=== PATIENT | female | born 1975 ===

== ENCOUNTER 2021-01-14 08:15 | Emergency (ER) | payer SELFPAY ==
[2021-01-14 08:43] VITALS: BP 166/74
[2021-01-14] MEDS ORDERED: KETOROLAC 10 MG TAB PO ONE (09:33)
--- NOTE | 2021-01-14 09:38 | Emergency Department Report ---
ED General Adult HPI - General Chief complaint: Pain General Stated complaint: BODY PAIN Time Seen by Provider: 01/14/21 08:47 Source: patient Mode of arrival: Ambulatory Limitations: No Limitations - History of Present Illness Initial comments: 45-year-old -[place] female patient without prior medical history presents with complaints of bilateral shoulder pain radiating into her arms x3 weeks. She describes the pain as a tightness, burning, and tingling down her arms. She denies any injuries to her neck or recent heavy lifting or head tra [place]. No fever/chills/sweats, headache, or past medical history. Patient states Tylenol is not helping. She also reports that intermittently the right shoulder pain radiates into her upper right chest and breast. She denies any shortness of breath, cough, leg pain/swelling, recent long travel, or hormone use. No history of DVT/PE. Patient reports the pain worsens with movement of the shoulders and with certain positions while sleeping at night. - Related Data Previous Rx's Medication Instructions Recorded Last Taken Type Naproxen 500 mg PO BID PRN #20 tablet 01/14/21 Unknown Rx methocarbamoL [Methocarbamol] 750 - 1,500 mg PO TID PRN #30 01/14/21 Unknown Rx tablet Allergies Allergy/AdvReac Type Severity Reaction Status Date / Time No Known Allergies Allergy Verified 01/14/21 09:42 ED Review of Systems ROS: Stated complaint: BODY PAIN Other details as noted in HPI Constitutional: denies: chills, fever Respiratory: denies: cough, shortness of breath Cardiovascular: as per HPI Gastrointestinal: denies: abdominal pain Neurological: denies: headache, weakness, numbness, paresthesias, abnormal gait ED Past Medical Hx - Past Medical History Previous Medical History?: No - Surgical History Past Surgical History?: No - Medications Home Medications: Home Medications Medication Instructions Recorded Confirmed Last Taken Type Naproxen 500 mg PO BID PRN #20 tablet 01/14/21 Unknown Rx methocarbamoL [Methocarbamol] 750 - 1,500 mg PO TID PRN #30 01/14/21 Unknown Rx tablet ED Physical Exam - General Limitations: No Limitations General appearance: alert, in no apparent distress - Head Head exam: Present: atraumatic, normocephalic - Eye Eye exam: Present: normal appearance - Neck Neck exam: Present: tenderness (Tenderness to palpation noted bilaterally to trapezius muscles without obvious deformity; minimal vertebral tenderness to palpation noted without obvious deformity or step-off), full ROM - Respiratory Respiratory exam: Present: normal lung sounds bilaterally. Absent: respiratory distress - Cardiovascular Cardiovascular Exam: Present: regular rate, normal rhythm - Extremities Exam Extremities exam: Absent: calf tenderness - Back Exam Back exam: Present: full ROM - Neurological Exam Neurological exam: Present: alert, oriented X3 - Psychiatric Psychiatric exam: Present: normal affect, normal mood - Skin Skin exam: Present: warm, dry, intact, normal color. Absent: rash ED Course Vital Signs 01/14/21 08:40 Temperature 98 F Pulse Rate 71 Respiratory 16 Rate Blood Pressure 166/74 [Left] O2 Sat by Pulse 99 Oximetry ED Medical Decision Making - Lab Data Result diagrams: 01/14/21 09:54 01/14/21 09:54 Lab Results 01/14/21 01/14/21 Range/Units 09:54 09:54 WBC 3.8 L (4.5-11.0) K/mm3 RBC 4.37 (3.65-5.03) M/mm3 Hgb 11.8 (10.1-14.3) gm/dl Hct 36.7 (30.3-42.9) % MCV 84 (79-97) fl MCH 27 L (28-32) pg MCHC 32 (30-34) % RDW 14.5 (13.2-15.2) % Plt Count 165 (140-440) K/mm3 Lymph % (Auto) 24.5 (13.4-35.0) % [place] % (Auto) 15.3 H (0.0-7.3) % Eos % (Auto) 4.3 (0.0-4.3) % Baso % (Auto) 1.4 (0.0-1.8) % Lymph # (Auto) 0.9 L (1.2-5.4) K/mm3 [place] # (Auto) 0.6 (0.0-0.8) K/mm3 Eos # (Auto) 0.2 (0.0-0.4) K/mm3 Baso # (Auto) 0.1 (0.0-0.1) K/mm3 Seg Neutrophils % 54.5 (40.0-70.0) % Seg Neutrophils # 2.1 (1.8-7.7) K/mm3 Sodium 140 (137-145) mmol/L Potassium 3.9 (3.6-5.0) mmol/L Chloride 105.5 (98-107) mmol/L Carbon Dioxide 23 (22-30) mmol/L Anion Gap 15 mmol/L BUN 8 (7-17) mg/dL Creatinine 0.9 (0.6-1.2) mg/dL Estimated GFR > 60 ml/min BUN/Creatinine Ratio 9 % Glucose 98 (65-100) mg/dL Calcium 9.0 (8.4-10.2) mg/dL Total Bilirubin 0.50 (0.1-1.2) mg/dL AST 18 (5-40) units/L ALT 18 (7-56) units/L Alkaline Phosphatase 58 (35-129) units/L Troponin T < 0.010 (0.00-0.029) ng/mL Total Protein 7.5 (6.3-8.2) g/dL Albumin 4.5 (3.9-5) g/dL Albumin/Globulin Ratio 1.5 % - EKG Data EKG shows normal: sinus rhythm Rate: normal - EKG Data When compared to previous EKG there are: other (Mild arrhythmia noted, however this appears to be due to patient breathing) - Radiology Data Radiology results: report reviewed XR chest routine 2V INDICATION / CLINICAL INFORMATION: chest pain. COMPARISON: None available. FINDINGS: SUPPORT DEVICES: None. HEART /PULMONARY VASCULATURE: No significant abnormality. LUNGS / PLEURA: No significant pulmonary or pleural abnormality. No pneumothorax. ADDITIONAL FINDINGS: No significant additional findings. IMPRESSION: 1. No acute findings. - Medical Decision Making 45-year-old -[place] female patient without prior medical history presents with complaints of bilateral shoulder pain radiating into her arms x3 weeks. She describes the pain as a tightness, burning, and tingling down her arms. She denies any injuries to her neck or recent heavy lifting or head trauma. No fever/chills/sweats, headache, or past medical history. Patient states Tylenol is not helping. She also reports that intermittently the right shoulder pain radiates into her upper right chest and breast. She denies any shortness of breath, cough, leg pain/swelling, recent long travel, or hormone use. No history of DVT/PE. Patient reports the pain worsens with movement of the shoulders and with certain positions while sleeping at night. History and physical appear to be consistent with cervical radiculopathy. Given pain radiation to the chest, EKG, chest x-ray, and labs were performed and are negative for any acute abnormalities. Will treat for cervical radiculopathy with NSAIDs and muscle relaxers. Recommend patient follows up with primary care for further evaluation, referral provided. Patient also informed she will need to follow-up with primary care for blood pressure recheck. She is otherwise well-appearing and stable for discharge home. Strict return precautions were discussed in great detail with patient who verbalizes understanding. Critical care attestation.: If time is entered above; I have spent that time in minutes in the direct care of this critically ill patient, excluding procedure time. ED Disposition Clinical Impression: Cervical radiculopathy, Elevated blood pressure reading without diagnosis of hypertension Disposition: HOME / SELF CARE / HOMELESS Is pt being admited?: No Condition: Stable Instructions: Cervical Radiculopathy, Hypertension, Adult, [id number] Additional Instructions: Your chest x-ray, blood work, and ECG of your heart are normal. As discussed, your symptoms appear to be due to cervical radiculopathy. Please follow-up with a primary care doctor for further evaluation and treatment. If you develop new or worsening symptoms, please seek immediate emergency treatment. Prescriptions: methocarbamoL [Methocarbamol] 750 - 1,500 mg PO TID PRN #30 tablet PRN Reason: muscle spasm/tightness Naproxen 500 mg PO BID PRN #20 tablet PRN Reason: pain Referrals: [facility] [Provider Group] - 3-5 Days
--- NOTE | 2021-01-14 10:03 | XRay Report ---
XR chest routine 2V INDICATION / CLINICAL INFORMATION: chest pain. COMPARISON: None available. FINDINGS: SUPPORT DEVICES: None. HEART /PULMONARY VASCULATURE: No significant abnormality. LUNGS / PLEURA: No significant pulmonary or pleural abnormality. No pneumothorax. ADDITIONAL FINDINGS: No significant additional findings. IMPRESSION: 1. No acute findings. Signer Name: Sage Dalton MD Signed: 01/14/2021 9:59 AM Workstation Name: [id number]
[2021-01-14 10:07] LABS: Basophils # (Auto) 0.1 K/mm3 (0.0-0.1); Basophils % (Auto) 1.4 % (0.0-1.8); Eosinophils # (Auto) 0.2 K/mm3 (0.0-0.4); Eosinophils % (Auto) 4.3 % (0.0-4.3); Hematocrit 36.7 % (30.3-42.9); Hemoglobin 11.8 gm/dl (10.1-14.3); Lymphocytes # (Auto) 0.9 K/mm3 (1.2-5.4); Lymphocytes % (Auto) 24.5 % (13.4-35.0); Mean Corpuscular HGB Conc 32 % (30-34); Mean Corpuscular Volume 84 fl (79-97); Monocytes # (Auto) 0.6 K/mm3 (0.0-0.8); Monocytes % (Auto) 15.3 % (0.0-7.3); Platelet Count 165 K/mm3 (140-440); Red Blood Count 4.37 M/mm3 (3.65-5.03); Red Cell Distribution Width 14.5 % (13.2-15.2)
[2021-01-14 10:31] LABS: Alanine Aminotransferase 18 units/L (7-56); Albumin 4.5 g/dL (3.9-5); BUN/Creatinine Ratio 9; Blood Urea Nitrogen 8 mg/dL (7-17); Hemolysis Index 10
--- NOTE | 2021-01-15 12:19 | Electrocardiograph Report ---
[facility] Test Date: 2021-01-14 Test Time: 09:59:51 Pat Name: SOCORRO SIDDIQUI Department: Room: Gender: F Scrap Baler: IKER : 1975 Requested By: PAMELA RIVAS Order Number: [id number] Reading MD: Darlene Wayne Measurements Intervals [place] Rate: 63 P: 40 WI: 159 QRS: 52 QRSD: 77 T: 39 QT: 357 QTc: 366 Interpretive Statements Sinus arrhythmia Probable anteroseptal infarct, old No previous ECG available for comparison Electronically Signed On 01-15-2021 12:18:43 EDT by Darlene Wayne
== END 2021-01-14 12:16 | disposition home or self-care (01) ==
LOC: ED 08:15
DX: M54.12 Radiculopathy, cervical region (principal); R03.0 Elevated blood-pressure reading, without diagnosis of hypertension
CPT/HCPCS: 36415; 71046; 80053; 84484; 85025; 93005; 99283